=== PATIENT | female | born 1955 | race African-American/Black ===

== ENCOUNTER 2017-04-06 08:57 | Outpatient (CLI) | payer OTHER ==
--- NOTE | 2017-04-22 11:52 | MMO ---
BILATERAL SCREENING MAMMOGRAMS: Comparison: 2012 This study is interpreted with the assistance of computer aided detection. FINDINGS: Both breasts show fatty replacement. No evidence of mass, distortion, or suspicious calcification. No interval change noted. Recommend one year follow up. IMPRESSION: BIRADS 1 - negative. POS: [facility]
== END 2017-04-06 08:58 | disposition home or self-care (01) ==
LOC: SCSMAMMO 08:57
PROVIDERS: ATTEND Family Medicine
DX: Z12.31 Encounter for screening mammogram for malignant neoplasm of breast (principal)
CPT/HCPCS: 77067

== ENCOUNTER 2017-10-20 09:31 | Outpatient (CLI) | payer OTHER | END 2017-10-20 09:32 | disposition home or self-care (01) | LOC: CP 09:31 | PROVIDERS: ATTEND Family Medicine | DX: R06.2 Wheezing (principal) | CPT/HCPCS: 94010; 94727 ==

== ENCOUNTER 2018-05-10 09:07 | Outpatient (CLI) | payer OTHER ==
--- NOTE | 2018-05-26 15:49 | MMO ---
Bilateral MAMMO Bilat Screen [facility]. CLINICAL HISTORY: Patient is 62 years old and is seen for screening. The patient has no family history of breast cancer. The patient has no personal history of cancer. VIEWS: The views performed were: bilateral craniocaudal and bilateral mediolateral oblique. FILMS COMPARED: The present examination has been compared to prior imaging studies performed at 04/06/2017, and at [facility] on 05/14/2012. This study has been interpreted with the assistance of computer-aided detection. MAMMOGRAM FINDINGS: The breasts are almost entirely fat. There are no suspicious masses, suspicious calcifications, or new areas of architectural distortion. IMPRESSION: THERE IS NO MAMMOGRAPHIC EVIDENCE OF MALIGNANCY. A ROUTINE FOLLOW-UP MAMMOGRAM IN 1 YEAR IS RECOMMENDED. ACR BI-RADS Category 1 - Negative MAMMOGRAPHY NOTE: 1. A negative mammogram report should not delay a biopsy if a dominant of clinically suspicious mass is present. 2. Approximately 10% to 15% of breast cancers are not detected by mammography. 3. Adenosis and dense breasts may obscure an underlying neoplasm.
== END 2018-05-10 09:08 | disposition home or self-care (01) ==
LOC: SCSMAMMO 09:07
PROVIDERS: ATTEND Family Medicine
DX: Z12.31 Encounter for screening mammogram for malignant neoplasm of breast (principal)
CPT/HCPCS: 77067

== ENCOUNTER 2018-05-17 17:38 | Emergency (ER) | payer OTHER ==
[2018-05-17] MEDS ORDERED: predniSONE 20 MG TAB ONE (17:54)
--- NOTE | 2018-05-17 18:56 | RAD ---
FExam: 2 views chest Provided clinical history: Cough FINDINGS: Comparison 06/22/2016. Cardiac and mediastinal silhouette is within normal limits. Lungs appear clear. No pleural fluid or pneumothorax apparent. IMPRESSION: No evidence for an acute cardiopulmonary process.
== END 2018-05-17 19:10 | disposition home or self-care (01) ==
LOC: SCSER 17:38
DX: J45.901 Unspecified asthma with (acute) exacerbation (principal); E03.9 Hypothyroidism, unspecified; E78.5 Hyperlipidemia, unspecified; Z79.899 Other long term (current) drug therapy
CPT/HCPCS: 71046; 93005; 94640; 94760; J7620